=== PATIENT | female | born 1985 | race Hispanic/Latino ===

== ENCOUNTER 2022-02-19 17:56 | Emergency (ER) | payer OTHER ==
[~2022-02-19] VITALS: Ht 167.6 cm; Wt 128.8 kg
[2022-02-19] MEDS ORDERED: SODIUM CHLORIDE 0.9% 1000ML 1,000 ML IV STA (18:46)
[2022-02-19] MEDS ORDERED: KETOROLAC TROMETHAMINE 30 MG/ML VIAL IV ONE (19:00)
[2022-02-19] MEDS ORDERED: ONDANSETRON HCL INJ 2MG/ML 2ML 2 MG/ML VIAL IV ONE (19:00)
[2022-02-19] MEDS ORDERED: ONDANSETRON HCL INJ 2MG/ML 2ML 2 MG/ML VIAL ONE (19:18)
[2022-02-19] MEDS ORDERED: KETOROLAC TROMETHAMINE 30 MG/ML VIAL ONE (19:18)
[2022-02-19] MEDS ORDERED: SODIUM CHLORIDE 0.9% 1000ML 1,000 ML ONE (19:18)
[2022-02-19] MEDS ORDERED: ACETAMINOPHEN500 MG PO (19:58)
[2022-02-19] MEDS ORDERED: IBUPROFEN200 MG PO (19:58)
[2022-02-19 20:04] VITALS: BP 141/50
== END 2022-02-19 20:04 | disposition home or self-care (01) ==
LOC: FSED 18:18
DX: M54.50 Low back pain, unspecified (principal); K80.80 Other cholelithiasis without obstruction; R10.32 Left lower quadrant pain; D64.9 Anemia, unspecified
CPT/HCPCS: 74176; 80048; 80076; 81003; 81025; 85025; 96374; 96376; 99284; J1885; J2405; J7030